=== PATIENT | female | born 1985 | race Two or more races ===

== ENCOUNTER 2018-07-31 10:50 | Emergency (ER) | payer OTHER ==
[~2018-07-31] VITALS: Ht 154.9 cm; Wt 93.0 kg
[2018-07-31] MEDS ORDERED: COZAAR50 MG (11:13)
[2018-07-31] MEDS ORDERED: KETO10TA2 PO (14:10)
== END 2018-07-31 22:45 | disposition home or self-care (01) ==
LOC: ER 10:50 → EDBD 11:05 → ER 22:45
DX: R10.2 Pelvic and perineal pain (principal)

== ENCOUNTER 2018-09-22 12:17 | Outpatient (CLI) | payer OTHER ==
[~2018-09-22 12:17] MED LIST: COZAAR50 MG; KETO10TA2 PO
== END 2018-09-22 14:33 | disposition home or self-care (01) ==
LOC: LAB 12:17
DX: Z11.59 Encounter for screening for other viral diseases (principal)

== ENCOUNTER 2019-03-05 14:47 | Outpatient (CLI) | payer OTHER | END 2019-03-05 14:58 | disposition home or self-care (01) | LOC: LAB 14:47 | DX: J11.1 Influenza due to unidentified influenza virus with other respiratory manifestations (principal); R50.9 Fever, unspecified; A49.3 Mycoplasma infection, unspecified site ==

== ENCOUNTER 2019-07-03 14:24 | Outpatient (CLI) | payer OTHER ==
[2019-07-03] MEDS ORDERED: FLONASE16 GM NASAL (15:35)
[2019-07-03] MEDS ORDERED: ZYRTEC10 MG PO (15:36)
[2019-07-03] MEDS ORDERED: SWIM EAR DRO29.57 ML OT (15:36)
== END 2019-07-03 16:19 | disposition home or self-care (01) ==
LOC: OFIC 805 14:24
DX: J31.0 Chronic rhinitis (principal); J34.3 Hypertrophy of nasal turbinates; H61.23 Impacted cerumen, bilateral

== ENCOUNTER 2019-11-14 07:39 | Outpatient (CLI) | payer OTHER ==
[~2019-11-14 07:39] MED LIST changes: +FLONASE16 GM NASAL; +SWIM EAR DRO29.57 ML OT; +ZYRTEC10 MG PO
== END 2019-11-14 15:00 | disposition home or self-care (01) ==
LOC: LAB 07:39
DX: I10 Essential (primary) hypertension (principal); E11.9 Type 2 diabetes mellitus without complications; E03.8 Other specified hypothyroidism

== ENCOUNTER 2019-12-31 08:03 | Outpatient (CLI) | payer OTHER | END 2019-12-31 08:12 | disposition home or self-care (01) | LOC: LAB 08:03 | DX: D68.8 Other specified coagulation defects (principal); N92.6 Irregular menstruation, unspecified ==